=== PATIENT | female | born 1935 | race Caucasian/White ===

== ENCOUNTER 2016-12-30 11:12 | Inpatient (IN) | payer MEDICARE, MEDICAID ==
[~2016-12-30] VITALS: Ht 152.4 cm; Wt 77.1 kg
[~2016-12-30 11:12] MED LIST: AMLO2.5T45 PO; BENA40TA66 PO; BISA-81 PO; CLON0.1T PO; DOCU-150 PO; FURO20TA4 PO; GABA-531 PO; LEVO25TA7 PO; PANT40TA4 PO; POTA10TA15 PO; SERT50TA PO; TRAV2.5D EACHEYE; WARF2.5T47 PO
[2016-12-30 11:55] LABS: BASOPHILS % 1.2 % (0.0-2.0); EOSINOPHILS % 0.9 % (0.0-5.0); HEMATOCRIT. 38.8 % (36.0-48.0); HEMOGLOBIN. 12.6 g/dL (12.0-16.0); LYMPHOCYTES % 18.7 % (20.0-50.0); MEAN CORPUSCULAR VOLUME 76.6 fL (81.0-99.0); MONOCYTES % 9.5 % (2.0-8.0); NEUTROPHILS % 69.7 % (40.0-76.0); PLATELET 161 x1000/uL (130-400); RED BLOOD CELL COUNT 5.06 mill/uL (4.2-5.4); RED CELL DISTRIBUTION WIDTH 18.5 % (11.6-14.6)
[2016-12-30 11:59] LABS: INR 1.9; PROTHROMBIN TIME 19.8 sec
[2016-12-30 12:02] LABS: CHLORIDE 102 mEq/L (98-107)
[2016-12-30 12:11] LABS: CARBON DIOXIDE 34 mEq/L (21-32); TROPONIN I < 0.02 ng/mL (0.00-0.04)
[2016-12-30] MEDS ORDERED: AZITHROMYCIN 500 MG in DEXT 5% WATER 250 ML IV SCH (15:30)
[2016-12-30] MEDS ORDERED: CEFTRIAXONE SODIUM 500 MG/VIAL IM ONE (15:30)
[2016-12-30] MEDS ORDERED: CEFTRIAXONE 1 G PREMIX 50 ML IV ONE (15:45)
[2016-12-30] MEDS ORDERED: DOCUSATE SODIUM 100MG CAPSULE PO PRN (16:00)
[2016-12-30] MEDS ORDERED: SODIUM CHLORIDE 0.9% 500 ML IV ONE (16:00)
[2016-12-30] MEDS ORDERED: CLONIDINE 0.1MG TABLET PO PRN (16:00)
[2016-12-30] MEDS ORDERED: NA PHOS,M-B/NA PHOS,DI-BA ENEMA 118ML PR PRN (16:00)
[2016-12-30] MEDS ORDERED: LORAZEPAM 2MG/ML CPJ IV PRN (16:00)
[2016-12-30] MEDS ORDERED: GUAIFENESIN 200MG/10ML SUGAR FREE UDC PO PRN (16:00)
[2016-12-30] MEDS ORDERED: ONDANSETRON HCL 4MG/2ML VIAL IV PRN (16:00)
[2016-12-30] MEDS ORDERED: MAGNESIUM/ALUMINUM HYDROXIDE/SIMETHICONE 30ML UDC PO PRN (16:00)
[2016-12-30] MEDS ORDERED: IPRATROPIUM/ALBUTEROL 0.5-3(2.5)MG/3ML NEB INH PRN (16:00)
[2016-12-30] MEDS ORDERED: NITROGLYCERIN 0.4MG TABLET SL SL PRN (16:00)
[2016-12-30] MEDS ORDERED: DIPHENHYDRAMINE 50MG/ML VIAL IV PRN (16:00)
[2016-12-30] MEDS ORDERED: ACETAMINOPHEN 325MG TABLET PO PRN (16:00)
[2016-12-30 16:17] LABS: HDL CHOLESTEROL 63 mg/dL (40-59); LDL CHOLESTEROL 96 mg/dL (5-100)
[2016-12-30 16:18] LABS: PHENYTOIN < 0.4 ug/mL (10-20)
[2016-12-30 20:00] VITALS: BP 158/79
[2016-12-30] MEDS ORDERED: ZOLPIDEM TARTRATE 5MG TABLET PO PRN (20:00)
[2016-12-30] MEDS ORDERED: ENOXAPARIN 40MG/0.4ML SYR SUBCUT SCH (20:00)
[2016-12-30] MEDS ORDERED: WARFARIN SODIUM 2MG TABLET PO NR (20:01)
[2016-12-30] MEDS ORDERED: DEXTROSE 50% WATER 50ML SYRINGE IV PRN (20:15)
[2016-12-30 20:26] VITALS: BP 159/61
[2016-12-30] MEDS ORDERED: PNEUMOCOCCAL 23-VAL P-SAC VAC 0.5 ML IM ONE (20:30)
[2016-12-30] MEDS: BLOOD SUGAR DIAGNOSTIC STRIP TEST SCH (21:00)
[2016-12-30] MEDS: INSULIN LISPRO 100 UNITS/ML SUBCUT SCH (21:00)
[2016-12-30] MEDS: GUAIFENESIN/DM 600MG/30MG ER TAB 12HR PO SCH (21:56)
[2016-12-30] MEDS: PHENYTOIN SODIUM EXTENDED 100MG CAPSULE PO SCH (21:56)
[2016-12-30] MEDS: METOPROLOL TARTRATE 25MG TABLET PO SCH (21:57)
[2016-12-30 23:11] LABS: CREATINE KINASE 37 IU/L (26-192); CREATINE KINASE MB FRACTION 1.2 ng/mL (0.5-3.6); TROPONIN I < 0.02 ng/mL (0.00-0.04)
[2016-12-31] VITALS: BP 102/61
[2016-12-31 04:00] VITALS: BP 142/81
[2016-12-31] MEDS: BLOOD SUGAR DIAGNOSTIC STRIP TEST SCH ×4 (06:01→20:54)
[2016-12-31] MEDS: LEVOTHYROXINE SODIUM 112MCG TABLET PO SCH (06:14)
[2016-12-31] MEDS: INSULIN LISPRO 100 UNITS/ML SUBCUT SCH ×4 (06:20→21:26)
[2016-12-31 06:51] LABS: INR 2.1; PROTHROMBIN TIME 22.4 sec
[2016-12-31 07:34] LABS: CREATINE KINASE 28 IU/L (26-192); CREATINE KINASE MB FRACTION 1.2 ng/mL (0.5-3.6); TROPONIN I < 0.02 ng/mL (0.00-0.04)
[2016-12-31 08:00] VITALS: BP 146/91
[2016-12-31] MEDS: GUAIFENESIN/DM 600MG/30MG ER TAB 12HR PO SCH ×2 (09:00→21:10)
[2016-12-31] MEDS: ZINC SULFATE 220 MG ( 50 ) CAPSULE PO SCH (09:42)
[2016-12-31] MEDS: AMLODIPINE 10MG TABLET PO SCH (09:42)
[2016-12-31] MEDS: PANTOPRAZOLE SODIUM 40 MG/VIAL IV SCH (09:43)
[2016-12-31] MEDS: METOPROLOL TARTRATE 25MG TABLET PO SCH ×2 (09:43→21:00)
[2016-12-31 12:00] VITALS: BP 147/69
[2016-12-31 16:00] VITALS: BP 147/91
[2016-12-31] MEDS ORDERED: CEFTRIAXONE 1 G PREMIX 50 ML IV SCH (16:00)
[2016-12-31] MEDS ORDERED: AZITHROMYCIN 500 MG in DEXT 5% WATER 250 ML IV SCH (17:00)
[2016-12-31] MEDS ORDERED: WARFARIN SODIUM 2MG TABLET PO NR (18:00)
[2016-12-31] MEDS: AZITHROMYCIN 500 MG in DEXT 5% WATER 250 ML IV SCH (18:42)
[2016-12-31 20:00] VITALS: BP 107/75
[2016-12-31] MEDS: PHENYTOIN SODIUM EXTENDED 100MG CAPSULE PO SCH (21:10)
[2017-01-01] VITALS: BP 137/67
[2017-01-01] MEDS: CEFTRIAXONE 1 G PREMIX 50 ML IV SCH ×2 (03:02→16:39)
[2017-01-01 04:00] VITALS: BP 114/59
[2017-01-01 05:56] LABS: INR 1.9; PROTHROMBIN TIME 20.1 sec
[2017-01-01] MEDS: BLOOD SUGAR DIAGNOSTIC STRIP TEST SCH ×4 (06:10→21:14)
[2017-01-01] MEDS: INSULIN LISPRO 100 UNITS/ML SUBCUT SCH ×4 (06:10→21:14)
[2017-01-01] MEDS: LEVOTHYROXINE SODIUM 112MCG TABLET PO SCH (06:33)
[2017-01-01 08:00] VITALS: BP 124/67
[2017-01-01] MEDS: METOPROLOL TARTRATE 25MG TABLET PO SCH ×2 (09:00→21:22)
[2017-01-01] MEDS: PANTOPRAZOLE SODIUM 40 MG/VIAL IV SCH (09:23)
[2017-01-01] MEDS: AMLODIPINE 10MG TABLET PO SCH (09:24)
[2017-01-01] MEDS: GUAIFENESIN/DM 600MG/30MG ER TAB 12HR PO SCH ×2 (09:24→21:21)
[2017-01-01] MEDS: ZINC SULFATE 220 MG ( 50 ) CAPSULE PO SCH (09:28)
[2017-01-01 12:00] VITALS: BP 91/45
[2017-01-01 16:00] VITALS: BP 115/64
[2017-01-01] MEDS ORDERED: WARFARIN SODIUM 2.5MG TABLET PO NR (18:00)
[2017-01-01] MEDS: AZITHROMYCIN 500 MG in DEXT 5% WATER 250 ML IV SCH (18:29)
[2017-01-01 20:00] VITALS: BP 134/81
[2017-01-01] MEDS: PHENYTOIN SODIUM EXTENDED 100MG CAPSULE PO SCH (21:21)
[2017-01-01] MEDS: TRAMADOL 50MG TABLET PO PRN (21:21)
[2017-01-02] VITALS: BP 132/81
[2017-01-02 04:00] VITALS: BP 137/82
[2017-01-02 06:08] LABS: INR 2.3; PROTHROMBIN TIME 24.1 sec
[2017-01-02] MEDS: LEVOTHYROXINE SODIUM 25MCG TABLET PO SCH (06:16)
[2017-01-02] MEDS: BLOOD SUGAR DIAGNOSTIC STRIP TEST SCH ×4 (06:16→21:56)
[2017-01-02] MEDS: INSULIN LISPRO 100 UNITS/ML SUBCUT SCH ×4 (06:21→21:00)
[2017-01-02 08:30] VITALS: BP 132/83
[2017-01-02] MEDS: PANTOPRAZOLE SODIUM 40 MG/VIAL IV SCH (08:43)
[2017-01-02] MEDS: ZINC SULFATE 220 MG ( 50 ) CAPSULE PO SCH (08:44)
[2017-01-02] MEDS: AMLODIPINE 10MG TABLET PO SCH (08:44)
[2017-01-02] MEDS: METOPROLOL TARTRATE 25MG TABLET PO SCH ×2 (08:44→21:47)
[2017-01-02] MEDS: GUAIFENESIN/DM 600MG/30MG ER TAB 12HR PO SCH ×2 (08:44→21:00)
[2017-01-02 12:00] VITALS: BP 137/82
[2017-01-02 16:00] VITALS: BP 136/72
[2017-01-02] MEDS: CEFTRIAXONE 1 G PREMIX 50 ML IV SCH (16:34)
[2017-01-02] MEDS: AZITHROMYCIN 500 MG in DEXT 5% WATER 250 ML IV SCH (17:35)
[2017-01-02] MEDS ORDERED: WARFARIN SODIUM 2.5MG TABLET PO NR (18:00)
[2017-01-02 20:00] VITALS: BP 142/82
[2017-01-02] MEDS: PHENYTOIN SODIUM EXTENDED 100MG CAPSULE PO SCH (21:46)
[2017-01-03] VITALS (7 sets, daily range): BP systolic 127–161; BP diastolic 63–99
[2017-01-03 05:31] LABS: INR 2.4; PROTHROMBIN TIME 25.2 sec
[2017-01-03] MEDS: BLOOD SUGAR DIAGNOSTIC STRIP TEST SCH ×4 (06:04→20:11)
[2017-01-03] MEDS: LEVOTHYROXINE SODIUM 25MCG TABLET PO SCH (06:08)
[2017-01-03] MEDS: INSULIN LISPRO 100 UNITS/ML SUBCUT SCH ×4 (06:29→20:11)
[2017-01-03] MEDS ORDERED: FAMOTIDINE 20MG TABLET PO SCH (09:00)
[2017-01-03] MEDS: METOPROLOL TARTRATE 25MG TABLET PO SCH ×2 (09:18→20:07)
[2017-01-03] MEDS: ZINC SULFATE 220 MG ( 50 ) CAPSULE PO SCH (09:18)
[2017-01-03] MEDS: TRAMADOL 50MG TABLET PO PRN (09:19)
[2017-01-03] MEDS: AMLODIPINE 10MG TABLET PO SCH (09:19)
[2017-01-03] MEDS: GUAIFENESIN/DM 600MG/30MG ER TAB 12HR PO SCH ×2 (09:23→20:18)
[2017-01-03] MEDS ORDERED: WARFARIN SODIUM 2.5MG TABLET PO SCH (18:00)
[2017-01-03] MEDS: PHENYTOIN SODIUM EXTENDED 100MG CAPSULE PO SCH (20:07)
[2017-01-04 00:42] VITALS: BP 153/74
== END 2017-01-04 01:23 | DRG 193 ==
LOC: ER 11:22 → 5WST 15:26 → EDBEDREQ 15:29 → EDBEDREQTM 15:29 → SUPCPDRO 15:50 → ENRESERV 16:58
PROVIDERS: ADMIT Internal Medicine; ATTEND Internal Medicine
DX: J18.9 Pneumonia, unspecified organism (principal); G93.40 Encephalopathy, unspecified; E44.0 Moderate protein-calorie malnutrition; I69.354 Hemiplegia and hemiparesis following cerebral infarction affecting left non-dominant side; I48.91 Unspecified atrial fibrillation; E03.9 Hypothyroidism, unspecified; I10 Essential (primary) hypertension; E11.9 Type 2 diabetes mellitus without complications; E66.9 Obesity, unspecified; E78.00 Pure hypercholesterolemia, unspecified; E78.5 Hyperlipidemia, unspecified; E86.0 Dehydration; G40.909 Epilepsy, unspecified, not intractable, without status epilepticus; I95.9 Hypotension, unspecified; F32.9 Major depressive disorder, single episode, unspecified; Z74.01 Bed confinement status; Z68.33 Body mass index [BMI] 33.0-33.9, adult; Z79.01 Long term (current) use of anticoagulants; Z79.899 Other long term (current) drug therapy
CPT/HCPCS: 36415; 70551; 71010; 80053; 80061; 80185; 82550; 82553; 82962; 83036; 83880; 84443; 84484; 85025; 85610; 87040; 87086; 92610; 93005; 93306; 93970; 96365; 97163; 97167; 97530; 97535; 99285; C1893; C9113; J0456; J0696; J1650; J1815; J7040; J7050; J7060

== ENCOUNTER 2017-03-12 17:38 | Inpatient (IN) | payer MEDICARE, MEDICAID ==
[~2017-03-12] VITALS: Ht 160 cm; Wt 57.6 kg
[2017-03-12] MEDS ORDERED: ONDANSETRON HCL 4MG/2ML VIAL IV STA (18:27)
[2017-03-12] MEDS ORDERED: MORPHINE SULFATE 4 MG/ML CPJ (NOT FOR IM USE) IV STA (18:27)
[2017-03-12 19:06] LABS: BASOPHILS % 0.4 % (0.0-2.0); EOSINOPHILS % 0.1 % (0.0-5.0); HEMATOCRIT. 38.5 % (36.0-48.0); HEMOGLOBIN. 12.7 g/dL (12.0-16.0); LYMPHOCYTES % 13.2 % (20.0-50.0); MEAN CORPUSCULAR HEMOGLOBIN 26.3 pg (28.0-32.0); MEAN CORPUSCULAR VOLUME 79.9 fL (81.0-99.0); MEAN PLATELET VOLUME 8.1 fl (7.4-10.4); MONOCYTES % 8.2 % (2.0-8.0); NEUTROPHILS % 78.1 % (40.0-76.0); PLATELET 214 x1000/uL (130-400); RED BLOOD CELL COUNT 4.82 mill/uL (4.2-5.4); RED CELL DISTRIBUTION WIDTH 18.9 % (11.6-14.6)
[2017-03-12 19:12] LABS: INR 2.7; PARTIAL THROMBOPLASTIN TIME 49.7 sec (23.4-31.0); PROTHROMBIN TIME 28.3 sec (9.4-11.6)
[2017-03-12 19:21] LABS: CARBON DIOXIDE 25 mEq/L (21-32); CHLORIDE 105 mEq/L (98-107); TROPONIN I 0.03 ng/mL (0.00-0.04)
[2017-03-12 22:30] VITALS: BP 106/75
[2017-03-13] VITALS: BP 106/75
[2017-03-13] MEDS ORDERED: DOCUSATE SODIUM 100MG CAPSULE PO PRN (00:30)
[2017-03-13] MEDS ORDERED: ONDANSETRON HCL 4MG/2ML VIAL IV PRN (00:30)
[2017-03-13] MEDS ORDERED: IPRATROPIUM/ALBUTEROL 0.5-3(2.5)MG/3ML NEB INH PRN (00:30)
[2017-03-13 04:00] VITALS: BP 139/62
[2017-03-13 07:54] LABS: TROPONIN I 0.02 ng/mL (0.00-0.04)
[2017-03-13 08:00] VITALS: BP 139/85
[2017-03-13 12:00] VITALS: BP 142/73
[2017-03-13] MEDS: MORPHINE SULFATE 2 MG/ML CPJ (NOT FOR IM USE) IV PRN (12:46)
[2017-03-13] MEDS ORDERED: CLONIDINE 0.1MG TABLET PO PRN (13:30)
[2017-03-13] MEDS ORDERED: BISACODYL 5MG TABLET PO PRN (13:30)
[2017-03-13] MEDS: FUROSEMIDE 20MG TABLET PO SCH (14:36)
[2017-03-13] MEDS: GABAPENTIN 300MG CAPSULE PO SCH ×2 (14:36→20:32)
[2017-03-13] MEDS: LEVOTHYROXINE SODIUM 25MCG TABLET PO SCH (14:36)
[2017-03-13] MEDS: AMLODIPINE 5MG TABLET PO SCH (14:37)
[2017-03-13] MEDS: DOCUSATE SODIUM 100MG CAPSULE PO SCH ×2 (14:37→16:39)
[2017-03-13] MEDS: SERTRALINE HCL 50MG TABLET PO SCH (14:37)
[2017-03-13] MEDS: PANTOPRAZOLE 40MG DR TABLET PO SCH (14:37)
[2017-03-13 15:36] LABS: TROPONIN I 0.02 ng/mL (0.00-0.04)
[2017-03-13 16:00] VITALS: BP 149/91
[2017-03-13 20:00] VITALS: BP 140/56
[2017-03-13] MEDS ORDERED: PHEN100C4 PO (22:56)
[2017-03-14] VITALS: BP 163/79
[2017-03-14 04:00] VITALS: BP 149/77
[2017-03-14 06:18] LABS: BASOPHILS % 0.5 % (0.0-2.0); EOSINOPHILS % 0.9 % (0.0-5.0); HEMATOCRIT. 38.6 % (36.0-48.0); HEMOGLOBIN. 12.8 g/dL (12.0-16.0); LYMPHOCYTES % 21.9 % (20.0-50.0); MEAN CORPUSCULAR HEMOGLOBIN 26.4 pg (28.0-32.0); MEAN CORPUSCULAR VOLUME 79.6 fL (81.0-99.0); MEAN PLATELET VOLUME 8.2 fl (7.4-10.4); MONOCYTES % 11.4 % (2.0-8.0); NEUTROPHILS % 65.3 % (40.0-76.0); PLATELET 205 x1000/uL (130-400); RED BLOOD CELL COUNT 4.85 mill/uL (4.2-5.4); RED CELL DISTRIBUTION WIDTH 18.9 % (11.6-14.6)
[2017-03-14] MEDS: LEVOTHYROXINE SODIUM 25MCG TABLET PO SCH (06:22)
[2017-03-14 07:03] LABS: CHLORIDE 103 mEq/L (98-107)
[2017-03-14 07:15] LABS: CARBON DIOXIDE 27 mEq/L (21-32); HDL CHOLESTEROL 58 mg/dL (40-59); LDL CHOLESTEROL 128 mg/dL (5-100); TROPONIN I 0.02 ng/mL (0.00-0.04)
[2017-03-14 08:00] VITALS: BP 169/74
[2017-03-14] MEDS ORDERED: BACITRACIN ZINC 15GM TUBE TOP ONE (08:11)
[2017-03-14] MEDS ORDERED: VANCOMYCIN HCL 500 MG/VIAL ONE (08:11)
[2017-03-14] MEDS ORDERED: FENTANYL CITRATE/PF 50MCG/ML 2ML VIAL ONE (08:20)
[2017-03-14] MEDS ORDERED: MIDAZOLAM HCL 2 MG/2 ML VIAL ONE (08:21)
[2017-03-14] MEDS ORDERED: DEXAMETHASONE 4MG/ML 1ML VIAL ONE (08:58)
[2017-03-14] MEDS ORDERED: LABETALOL HCL 5MG/ML VIAL 20ML IV ONE (08:58)
[2017-03-14] MEDS ORDERED: PROPOFOL 200MG/20ML VIAL IV ONE (08:58)
[2017-03-14] MEDS ORDERED: LIDOCAINE HCL 1% 20ML VIAL (Pyxis) INJ ONE (08:58)
[2017-03-14] MEDS ORDERED: CEFAZOLIN SODIUM 1000MG/VIAL ONE (08:58)
[2017-03-14] MEDS ORDERED: SODIUM CHLORIDE 0.9% 10ML VIAL ONE (08:58)
[2017-03-14] MEDS ORDERED: LABETALOL HCL 20MG/4ML CARPUJECT IV PRN (09:00)
[2017-03-14] MEDS: DOCUSATE SODIUM 100MG CAPSULE PO SCH ×2 (09:00→17:43)
[2017-03-14] MEDS ORDERED: ONDANSETRON HCL 4MG/2ML VIAL IV PRN (09:00)
[2017-03-14] MEDS: GABAPENTIN 300MG CAPSULE PO SCH ×2 (09:00→21:03)
[2017-03-14] MEDS ORDERED: MEPERIDINE HCL/PF 25MG/ML CPJ IV PRN (09:00)
[2017-03-14] MEDS ORDERED: HYDROMORPHONE HCL/PF 2MG/ML CPJ IV PRN (09:00)
[2017-03-14] MEDS: FUROSEMIDE 20MG TABLET PO SCH (09:00)
[2017-03-14] MEDS: AMLODIPINE 5MG TABLET PO SCH (09:00)
[2017-03-14] MEDS: SERTRALINE HCL 50MG TABLET PO SCH (09:00)
[2017-03-14] MEDS: PANTOPRAZOLE 40MG DR TABLET PO SCH (09:00)
[2017-03-14] MEDS ORDERED: CEFAZOLIN 1000MG PREMIX 50 ML IV SCH (10:00)
[2017-03-14 12:00] VITALS: BP 136/81
[2017-03-14] MEDS: MORPHINE SULFATE 2 MG/ML CPJ (NOT FOR IM USE) IV PRN ×2 (13:34→20:20)
[2017-03-14 13:40] LABS: PROTHROMBIN TIME 48.3 sec (9.4-11.6)
[2017-03-14 13:45] LABS: INR 4.6
[2017-03-14 16:00] VITALS: BP 124/74
[2017-03-14] MEDS: CEFAZOLIN 1000MG PREMIX 50 ML IV SCH (17:43)
[2017-03-14 20:00] VITALS: BP 159/80
[2017-03-15] VITALS: BP 133/78
[2017-03-15] MEDS: CEFAZOLIN 1000MG PREMIX 50 ML IV SCH (02:37)
[2017-03-15 04:00] VITALS: BP 130/72
[2017-03-15 06:28] LABS: BASOPHILS % 0.3 % (0.0-2.0); EOSINOPHILS % 0.3 % (0.0-5.0); HEMATOCRIT. 33.4 % (36.0-48.0); LYMPHOCYTES % 15.4 % (20.0-50.0); MEAN CORPUSCULAR HEMOGLOBIN 26.4 pg (28.0-32.0); MEAN CORPUSCULAR VOLUME 80.2 fL (81.0-99.0); MEAN PLATELET VOLUME 8.3 fl (7.4-10.4); MONOCYTES % 12.8 % (2.0-8.0); NEUTROPHILS % 71.2 % (40.0-76.0); PLATELET 198 x1000/uL (130-400); RED BLOOD CELL COUNT 4.16 mill/uL (4.2-5.4); RED CELL DISTRIBUTION WIDTH 18.8 % (11.6-14.6)
[2017-03-15 06:29] LABS: PROTHROMBIN TIME 43.1 sec (9.4-11.6)
[2017-03-15 06:51] LABS: CHLORIDE 103 mEq/L (98-107)
[2017-03-15 06:56] LABS: CARBON DIOXIDE 25 mEq/L (21-32)
[2017-03-15] MEDS: LEVOTHYROXINE SODIUM 25MCG TABLET PO SCH (07:04)
[2017-03-15 07:11] LABS: INR 4.1
[2017-03-15 08:00] VITALS: BP 115/79
[2017-03-15] MEDS: DOCUSATE SODIUM 100MG CAPSULE PO SCH ×2 (09:50→17:13)
[2017-03-15] MEDS: FUROSEMIDE 20MG TABLET PO SCH (09:50)
[2017-03-15] MEDS: GABAPENTIN 300MG CAPSULE PO SCH ×2 (09:50→21:34)
[2017-03-15] MEDS: FAMOTIDINE 20MG TABLET PO SCH (09:50)
[2017-03-15] MEDS: SERTRALINE HCL 50MG TABLET PO SCH (09:51)
[2017-03-15] MEDS: AMLODIPINE 5MG TABLET PO SCH (09:51)
[2017-03-15 12:00] VITALS: BP 109/66
[2017-03-15] MEDS ORDERED: POTASSIUM CHLORIDE 20MEQ TABLET SR PO NR (15:00)
[2017-03-15 16:00] VITALS: BP 136/72
[2017-03-15] MEDS ORDERED: MAGNESIUM 1 G PREMIX 100 ML IV NR ×3 (16:30→18:30)
[2017-03-15] MEDS: ACETAMINOPHEN 325MG TABLET PO PRN (17:13)
[2017-03-15 20:00] VITALS: BP 101/57
[2017-03-16] VITALS: BP 114/66
[2017-03-16 04:00] VITALS: BP 153/48
[2017-03-16] MEDS: MORPHINE SULFATE 2 MG/ML CPJ (NOT FOR IM USE) IV PRN (05:33)
[2017-03-16 06:18] LABS: BASOPHILS % 0.3 % (0.0-2.0); EOSINOPHILS % 1.8 % (0.0-5.0); HEMATOCRIT. 30.2 % (36.0-48.0); HEMOGLOBIN. 9.9 g/dL (12.0-16.0); LYMPHOCYTES % 20.8 % (20.0-50.0); MEAN CORPUSCULAR HEMOGLOBIN 26.5 pg (28.0-32.0); MEAN CORPUSCULAR VOLUME 80.6 fL (81.0-99.0); MEAN PLATELET VOLUME 8.1 fl (7.4-10.4); MONOCYTES % 9.4 % (2.0-8.0); NEUTROPHILS % 67.7 % (40.0-76.0); PLATELET 196 x1000/uL (130-400); RED BLOOD CELL COUNT 3.75 mill/uL (4.2-5.4); RED CELL DISTRIBUTION WIDTH 18.4 % (11.6-14.6)
[2017-03-16 06:31] LABS: INR 2.3; PROTHROMBIN TIME 24.1 sec (9.4-11.6)
[2017-03-16 07:02] LABS: CARBON DIOXIDE 28 mEq/L (21-32); CHLORIDE 106 mEq/L (98-107)
[2017-03-16 08:00] VITALS: BP 134/68
[2017-03-16] MEDS: LEVOTHYROXINE SODIUM 25MCG TABLET PO SCH (08:06)
[2017-03-16] MEDS: GABAPENTIN 300MG CAPSULE PO SCH ×2 (08:16→21:14)
[2017-03-16] MEDS: DOCUSATE SODIUM 100MG CAPSULE PO SCH ×2 (08:16→17:13)
[2017-03-16] MEDS: SERTRALINE HCL 50MG TABLET PO SCH (08:16)
[2017-03-16] MEDS: FUROSEMIDE 20MG TABLET PO SCH (08:16)
[2017-03-16] MEDS: AMLODIPINE 5MG TABLET PO SCH (08:16)
[2017-03-16] MEDS: FAMOTIDINE 20MG TABLET PO SCH (08:16)
[2017-03-16 12:00] VITALS: BP 104/74
[2017-03-16] MEDS: LOSARTAN POTASSIUM 25 MG TABLET PO SCH (15:32)
[2017-03-16 16:00] VITALS: BP 121/60
[2017-03-16] MEDS: DILTIAZEM HCL 30MG TABLET PO SCH (17:15)
[2017-03-16 20:19] VITALS: BP 104/65
[2017-03-17] VITALS: BP 102/54
[2017-03-17 04:00] VITALS: BP 109/47
[2017-03-17] MEDS: DILTIAZEM HCL 30MG TABLET PO SCH ×4 (06:00→17:20)
[2017-03-17] MEDS: LEVOTHYROXINE SODIUM 25MCG TABLET PO SCH (07:25)
[2017-03-17 08:00] VITALS: BP 113/60
[2017-03-17] MEDS: FAMOTIDINE 20MG TABLET PO SCH (08:44)
[2017-03-17] MEDS: GABAPENTIN 300MG CAPSULE PO SCH ×2 (08:44→21:16)
[2017-03-17] MEDS: DOCUSATE SODIUM 100MG CAPSULE PO SCH ×2 (08:44→17:19)
[2017-03-17] MEDS: SERTRALINE HCL 50MG TABLET PO SCH (08:44)
[2017-03-17] MEDS: FUROSEMIDE 20MG TABLET PO SCH (08:44)
[2017-03-17] MEDS: LOSARTAN POTASSIUM 25 MG TABLET PO SCH (08:55)
[2017-03-17 12:00] VITALS: BP 127/70
[2017-03-17 16:00] VITALS: BP 118/70
[2017-03-17 20:15] VITALS: BP 135/87
[2017-03-18] VITALS: BP 144/48
[2017-03-18] MEDS: DILTIAZEM HCL 30MG TABLET PO SCH ×4 (01:00→17:13)
[2017-03-18 04:00] VITALS: BP 98/51
[2017-03-18] MEDS: LEVOTHYROXINE SODIUM 25MCG TABLET PO SCH (06:18)
[2017-03-18] MEDS: ACETAMINOPHEN 325MG TABLET PO PRN (06:18)
[2017-03-18 08:00] VITALS: BP 131/70
[2017-03-18] MEDS: LOSARTAN POTASSIUM 25 MG TABLET PO SCH (08:43)
[2017-03-18] MEDS: DOCUSATE SODIUM 100MG CAPSULE PO SCH ×2 (08:43→17:11)
[2017-03-18] MEDS: FAMOTIDINE 20MG TABLET PO SCH (08:43)
[2017-03-18] MEDS: SERTRALINE HCL 50MG TABLET PO SCH (08:43)
[2017-03-18] MEDS: FUROSEMIDE 20MG TABLET PO SCH (08:43)
[2017-03-18] MEDS: GABAPENTIN 300MG CAPSULE PO SCH ×2 (08:43→19:50)
[2017-03-18] MEDS ORDERED: MORPHINE SULFATE 2 MG/ML CPJ (NOT FOR IM USE) IV PRN (11:30)
[2017-03-18 12:00] VITALS: BP 123/68
[2017-03-18 16:00] VITALS: BP 119/46
[2017-03-18 20:00] VITALS: BP 128/53
[2017-03-19] VITALS: BP 134/65
[2017-03-19 04:00] VITALS: BP 125/51
[2017-03-19] MEDS: DILTIAZEM HCL 30MG TABLET PO SCH ×3 (06:24→12:41)
[2017-03-19 08:00] VITALS: BP 141/69
[2017-03-19] MEDS: SERTRALINE HCL 50MG TABLET PO SCH (08:58)
[2017-03-19] MEDS: FUROSEMIDE 20MG TABLET PO SCH (08:58)
[2017-03-19] MEDS: FAMOTIDINE 20MG TABLET PO SCH (08:58)
[2017-03-19] MEDS: LOSARTAN POTASSIUM 25 MG TABLET PO SCH (08:58)
[2017-03-19] MEDS: GABAPENTIN 300MG CAPSULE PO SCH (08:58)
[2017-03-19] MEDS: LEVOTHYROXINE SODIUM 25MCG TABLET PO SCH (08:58)
[2017-03-19] MEDS: DOCUSATE SODIUM 100MG CAPSULE PO SCH (08:58)
[2017-03-19 12:00] VITALS: BP 142/68
[2017-03-19 13:17] LABS: HEMATOCRIT 28.4 % (36.0-48.0); HEMOGLOBIN 9.4 g/dL (12.0-16.0); MEAN CORPUSCULAR HEMOGLOBIN 26.4 pg (28.0-32.0); MEAN CORPUSCULAR VOLUME 79.6 fL (81.0-99.0); PLATELET 229 x1000/uL (130-400); RED BLOOD CELL COUNT 3.57 mill/uL (4.2-5.4); RED CELL DISTRIBUTION WIDTH 17.7 % (11.6-14.6)
[2017-03-19 13:19] LABS: INR 1.1; PROTHROMBIN TIME 11.5 sec (9.4-11.6)
[2017-03-19 13:39] LABS: CARBON DIOXIDE 30 mEq/L (21-32); CHLORIDE 102 mEq/L (98-107)
[2017-03-19] MEDS: ACETAMINOPHEN 325MG TABLET PO PRN (14:10)
[2017-03-19 16:00] VITALS: BP 145/67
[2017-03-19 17:34] VITALS: BP 145/67
[2017-05-28] MEDS ORDERED: LOSA25TA12 PO (05:24)
[2017-05-28] MEDS ORDERED: [UNRECOGNIZED DRUG - OTHER] PO (05:24)
[2017-05-28] MEDS ORDERED: DILT30TA38 PO (05:24)
[2017-05-28] MEDS ORDERED: ONDA4TAB5 PO (05:24)
[2017-05-28] MEDS ORDERED: ACET-2178 PO (05:24)
[2017-05-28] MEDS ORDERED: FAMO20TA8 PO (05:24)
== END 2017-03-19 18:05 | DRG 480 ==
LOC: ER 18:25 → 6EST 18:31 → ENRESERV 19:05 → 7WST 03-15 16:23
PROVIDERS: ADMIT Hospitalist; ATTEND Hospitalist
PROC: 0QS736Z Reposition Left Upper Femur with Intramedullary Internal Fixation Device, Percutaneous Approach (ICD-10-PCS; principal; 2017-03-14 09:00)
DX: S72.142A Displaced intertrochanteric fracture of left femur, initial encounter for closed fracture (principal); E43 Unspecified severe protein-calorie malnutrition; F03.90 Unspecified dementia, unspecified severity, without behavioral disturbance, psychotic disturbance, mood disturbance, and anxiety; I11.9 Hypertensive heart disease without heart failure; G62.9 Polyneuropathy, unspecified; D68.9 Coagulation defect, unspecified; J98.11 Atelectasis; I48.2 Chronic atrial fibrillation; G40.909 Epilepsy, unspecified, not intractable, without status epilepticus; W19.XXXA Unspecified fall, initial encounter; E03.9 Hypothyroidism, unspecified; F32.9 Major depressive disorder, single episode, unspecified; F41.9 Anxiety disorder, unspecified; J44.9 Chronic obstructive pulmonary disease, unspecified; K21.9 Gastro-esophageal reflux disease without esophagitis; Z79.01 Long term (current) use of anticoagulants; Z86.73 Personal history of transient ischemic attack (TIA), and cerebral infarction without residual deficits; Z79.899 Other long term (current) drug therapy; Y93.89 Activity, other specified; Y92.128 Other place in nursing home as the place of occurrence of the external cause; Z68.22 Body mass index [BMI] 22.0-22.9, adult; Y99.8 Other external cause status
CPT/HCPCS: 36415; 71010; 73502; 76000; 80048; 80053; 80061; 80185; 82550; 83735; 83880; 84443; 84484; 85025; 85027; 85610; 85730; 86850; 86900; 87040; 93005; 93970; 96374; 96375; 97163; 97530; 99285; A4216; C1713; C1769; C1893; J0690; J1100; J1170; J2250; J2270; J2405; J2704; J3010; J3370; J3475; J3490; J7040

== ENCOUNTER 2021-03-10 14:02 | Inpatient (IN) | payer MEDICARE, MEDICAID ==
[~2021-03-10] VITALS: Ht 160 cm; Wt 74.0 kg
[~2021-03-10 14:02] MED LIST changes: +DILT30TA38 PO; +FAMO20TA8 PO; -GABA-531 PO; +GABA-532 PO; +LOSA25TA26 PO; +ONDA4TAB5 PO; -PANT40TA4 PO; +PANT40TA51 PO; +PHEN100C4 PO; +TOPUD PO; -TRAV2.5D EACHEYE; +TRAV2.5D9 EACHEYE; +[UNRECOGNIZED DRUG - OTHER] PO
[2021-03-10] MEDS ORDERED: CEFTRIAXONE 1 G PREMIX 50 ML IV ONE (15:00)
[2021-03-10] MEDS ORDERED: SODIUM CHLORIDE 0.9% 500 ML IV ONE (15:00)
[2021-03-10 15:33] LABS: BASOPHILS % 0.5 % (0.0-2.0); EOSINOPHILS % 0.1 % (0.0-5.0); HEMATOCRIT. 47.7 % (36.0-48.0); HEMOGLOBIN. 15.5 g/dL (12.0-16.0); LYMPHOCYTES % 7.9 % (20.0-50.0); MEAN CORPUSCULAR VOLUME 85.9 fL (81.0-99.0); MEAN PLATELET VOLUME 8.7 fl (7.4-10.4); MONOCYTES % 6.5 % (2.0-8.0); PLATELET 272 x1000/uL (130-400); RED BLOOD CELL COUNT 5.55 mill/uL (4.2-5.4); RED CELL DISTRIBUTION WIDTH 16.5 % (11.6-14.6)
[2021-03-10 15:34] LABS: CHLORIDE 116 mEq/L (98-107)
[2021-03-10 15:38] LABS: INR 1.3; PROTHROMBIN TIME 13.9 sec (9.6-11.0)
[2021-03-10 15:43] LABS: CREATINE KINASE 35 IU/L (26-192)
[2021-03-10] MEDS ORDERED: MAGNESIUM 2 G PREMIX 50 ML IV ONE (16:30)
[2021-03-10] MEDS ORDERED: VANCOMYCIN 1 G PREMIX 200 ML IV SCH (16:30)
[2021-03-10] MEDS ORDERED: PIPERACILLIN/TAZOBACTAM 3.375GM/50ML PREMIX IV ONE (16:30)
[2021-03-10] MEDS ORDERED: GUAIFENESIN 200MG/10ML SUGAR FREE UDC PO PRN (18:30)
[2021-03-10] MEDS ORDERED: DOCUSATE SODIUM 100MG CAPSULE PO PRN (18:30)
[2021-03-10] MEDS ORDERED: ACETAMINOPHEN 325MG TABLET PO PRN ×2 (18:30)
[2021-03-10] MEDS ORDERED: CLONIDINE 0.1MG TABLET PO PRN (18:30)
[2021-03-10] MEDS ORDERED: ONDANSETRON HCL 4MG/2ML INJ IV PRN (18:30)
[2021-03-10] MEDS ORDERED: MAGNESIUM/ALUMINUM HYDROXIDE/SIMETHICONE 30ML UDC PO PRN (18:30)
[2021-03-10] MEDS ORDERED: IPRATROPIUM/ALBUTEROL 0.5-3(2.5)MG/3ML NEB NEB PRN (18:30)
[2021-03-10] MEDS ORDERED: NITROGLYCERIN 0.4MG TABLET SL SL PRN (18:30)
[2021-03-10 19:17] LABS: CLARITY URINE CLEAR (CLEAR); COLOR URINE YELLOW (YELLOW); KETONES URINE NEGATIVE (NEGATIVE); LEUKOCYTE ESTERASE URINE 1+ (NEGATIVE); NITRITE URINE POSITIVE (NEGATIVE); OCCULT BLOOD URINE NEGATIVE (NEGATIVE); PH URINE 5.5 (4.5-8.0); PROTEIN URINE NEGATIVE (NEGATIVE); SPECIFIC GRAVITY URINE 1.011 (1.005-1.030); UROBILINOGEN URINE 0.2 E.U./dL (0.2-1.0)
[2021-03-10] MEDS ORDERED: WARFARIN SODIUM 4MG TABLET PO NR (19:30)
[2021-03-10] MEDS ORDERED: VANCOMYCIN 500 MG PREMIX 100 ML IV NR (20:00)
[2021-03-10] MEDS: PIPERACILLIN/TAZ 3.375G PREMIX 50 ML IV SCH (20:04)
[2021-03-10] MEDS: SODIUM CHLORIDE 0.9% 1,000 ML IV SCH (20:04)
[2021-03-10 20:34] LABS: VITAMIN B12 SERUM > 2000.0 pg/mL (211-911)
[2021-03-10 20:58] LABS: T4 FREE 0.65 ng/dL (0.76-1.46)
[2021-03-10] MEDS ORDERED: ENOXAPARIN 60MG/0.6ML SYR SUBCUT SCH (21:00)
[2021-03-10 23:39] LABS: CREATINE KINASE 38 IU/L (26-192)
[2021-03-10 23:40] LABS: CREATINE KINASE MB FRACTION < 1.0 ng/mL (0.5-3.6)
[2021-03-11] MEDS: ASCORBIC ACID 500 MG TABLET PO SCH ×3 (01:41→23:25)
[2021-03-11] MEDS: FAMOTIDINE 20MG TABLET PO SCH ×2 (01:41→23:24)
[2021-03-11] MEDS: DILTIAZEM HCL 60MG TABLET PO SCH ×4 (01:48→23:25)
[2021-03-11] MEDS: PIPERACILLIN/TAZ 3.375G PREMIX 50 ML IV SCH ×2 (03:10→11:09)
[2021-03-11] MEDS: SODIUM CHLORIDE 0.9% 1,000 ML IV SCH ×2 (04:34→16:22)
[2021-03-11 04:38] LABS: HEMATOCRIT. 46.7 % (36.0-48.0); HEMOGLOBIN. 14.8 g/dL (12.0-16.0); MEAN CORPUSCULAR VOLUME 88.4 fL (81.0-99.0); MEAN PLATELET VOLUME 8.7 fl (7.4-10.4); PLATELET 225 x1000/uL (130-400); RED BLOOD CELL COUNT 5.29 mill/uL (4.2-5.4); RED CELL DISTRIBUTION WIDTH 17.4 % (11.6-14.6)
[2021-03-11 04:40] LABS: CHLORIDE 118 mEq/L (98-107)
[2021-03-11 04:43] LABS: INR 1.4; PROTHROMBIN TIME 14.8 sec (9.6-11.0)
[2021-03-11 04:48] LABS: PHOSPHORUS 2.1 mg/dL (2.5-4.9)
[2021-03-11 04:50] LABS: CREATINE KINASE 29 IU/L (26-192)
[2021-03-11 04:53] LABS: CREATINE KINASE MB FRACTION < 1.0 ng/mL (0.5-3.6)
[2021-03-11] MEDS ORDERED: ASPIRIN 325MG EC TABLET PO SCH (09:00)
[2021-03-11] MEDS: ZINC SULFATE 220 MG ( 50 ) CAPSULE PO SCH (09:23)
[2021-03-11] MEDS: CHOLECALCIFEROL (D3) 1000 UNIT TABLET PO SCH (09:23)
[2021-03-11] MEDS ORDERED: POTASSIUM CHLORIDE 20MEQ/PACKET PO SCH (12:30)
[2021-03-11] MEDS ORDERED: KCL 20MEQ/100ML PREMIX 100 ML IV SCH (14:00)
[2021-03-11 14:45] LABS: PLATELET ESTIMATE NORMAL
[2021-03-11] MEDS: ENOXAPARIN 60MG/0.6ML SYR SUBCUT SCH ×2 (16:35→23:26)
[2021-03-11] MEDS ORDERED: WARFARIN SODIUM 3MG TABLET PO NR (18:00)
[2021-03-12] VITALS (10 sets, daily range): BP systolic 94–149; BP diastolic 49–105
[2021-03-12] MEDS ORDERED: DILTIAZEM HCL 5MG/ML 5ML VIAL IV PRN
[2021-03-12] MEDS: PIPERACILLIN/TAZOBACTAM 3.375G in DEXT 5% WATER 50ML IV SCH ×4 (01:15→22:51)
[2021-03-12] MEDS: SODIUM CHLORIDE 0.9% 1,000 ML IV SCH ×3 (01:16→20:49)
[2021-03-12] MEDS: VANCOMYCIN 1 G PREMIX 200 ML IV SCH ×2 (03:05→20:49)
[2021-03-12] MEDS: DILTIAZEM HCL 60MG TABLET PO SCH ×3 (05:15→17:28)
[2021-03-12 06:19] LABS: HEMATOCRIT. 48.8 % (36.0-48.0); HEMOGLOBIN. 15.7 g/dL (12.0-16.0); MEAN CORPUSCULAR HEMOGLOBIN 27.9 pg (28.0-32.0); MEAN CORPUSCULAR VOLUME 86.8 fL (81.0-99.0); MEAN PLATELET VOLUME 9.1 fl (7.4-10.4); PLATELET 244 x1000/uL (130-400); RED BLOOD CELL COUNT 5.62 mill/uL (4.2-5.4); RED CELL DISTRIBUTION WIDTH 17.5 % (11.6-14.6)
[2021-03-12 06:26] LABS: PROTHROMBIN TIME 52.9 sec (9.6-11.0)
[2021-03-12 06:39] LABS: INR 5.7
[2021-03-12 07:08] LABS: CHLORIDE 119 mEq/L (98-107)
[2021-03-12 07:18] LABS: PHOSPHORUS 2.5 mg/dL (2.5-4.9)
[2021-03-12] MEDS: ASCORBIC ACID 500 MG TABLET PO SCH ×2 (08:50→20:49)
[2021-03-12] MEDS: ENOXAPARIN 60MG/0.6ML SYR SUBCUT SCH (08:50)
[2021-03-12] MEDS: CHOLECALCIFEROL (D3) 1000 UNIT TABLET PO SCH (08:50)
[2021-03-12] MEDS: ZINC SULFATE 220 MG ( 50 ) CAPSULE PO SCH (08:50)
[2021-03-12] MEDS ORDERED: ASPIRIN 325MG TABLET NG SCH (09:00)
[2021-03-12] MEDS: ATORVASTATIN CALCIUM 20MG TABLET PO SCH (20:49)
[2021-03-12] MEDS: FAMOTIDINE 20MG TABLET PO SCH (20:49)
[2021-03-13] VITALS (15 sets, daily range): BP systolic 101–157; BP diastolic 32–90
[2021-03-13] MEDS: DILTIAZEM HCL 60MG TABLET PO SCH ×4 (00:45→18:04)
[2021-03-13 04:26] LABS: PLATELET ESTIMATE NORMAL
[2021-03-13] MEDS: PIPERACILLIN/TAZOBACTAM 3.375G in DEXT 5% WATER 50ML IV SCH ×2 (05:25→13:56)
[2021-03-13] MEDS: SODIUM CHLORIDE 0.9% 1,000 ML IV SCH ×2 (05:33→16:50)
[2021-03-13] MEDS: ASCORBIC ACID 500 MG TABLET PO SCH ×2 (09:25→21:13)
[2021-03-13] MEDS: ZINC SULFATE 220 MG ( 50 ) CAPSULE PO SCH (09:26)
[2021-03-13] MEDS: CHOLECALCIFEROL (D3) 1000 UNIT TABLET PO SCH (09:26)
[2021-03-13 10:55] LABS: HEMATOCRIT. 41.7 % (36.0-48.0); MEAN CORPUSCULAR HEMOGLOBIN 27.4 pg (28.0-32.0); MEAN CORPUSCULAR VOLUME 87.7 fL (81.0-99.0); MEAN PLATELET VOLUME 9.2 fl (7.4-10.4); PLATELET 230 x1000/uL (130-400); RED BLOOD CELL COUNT 4.75 mill/uL (4.2-5.4); RED CELL DISTRIBUTION WIDTH 17.6 % (11.6-14.6)
[2021-03-13 11:09] LABS: CHLORIDE 120 mEq/L (98-107)
[2021-03-13 11:11] LABS: PROTHROMBIN TIME 61.3 sec (9.6-11.0)
[2021-03-13 11:19] LABS: PHOSPHORUS 1.1 mg/dL (2.5-4.9)
[2021-03-13 13:11] LABS: INR 6.6
[2021-03-13 16:02] LABS: PLATELET ESTIMATE NORMAL
[2021-03-13] MEDS ORDERED: SODIUM CHLORIDE 0.45% 250 ML IV NR (20:00)
[2021-03-13] MEDS ORDERED: VANCOMYCIN 750 MG PREMIX 150 ML IV SCH (21:00)
[2021-03-13] MEDS: FAMOTIDINE 20MG TABLET PO SCH (21:13)
[2021-03-13] MEDS: ATORVASTATIN CALCIUM 20MG TABLET PO SCH (21:13)
[2021-03-13] MEDS: CEFTRIAXONE 1,000 MG in DEXTROSE 5% WATER 50 ML IV SCH (21:26)
[2021-03-14] VITALS (14 sets, daily range): BP systolic 90–158; BP diastolic 24–100
[2021-03-14] MEDS ORDERED: SODIUM CHLORIDE 0.45% 250 ML IV SCH
[2021-03-14] MEDS: DILTIAZEM HCL 60MG TABLET PO SCH ×4 (01:10→18:33)
[2021-03-14 06:29] LABS: HEMATOCRIT. 39.1 % (36.0-48.0); HEMOGLOBIN. 12.7 g/dL (12.0-16.0); MEAN CORPUSCULAR HEMOGLOBIN 27.7 pg (28.0-32.0); MEAN CORPUSCULAR VOLUME 85.4 fL (81.0-99.0); MEAN PLATELET VOLUME 9.5 fl (7.4-10.4); PLATELET 214 x1000/uL (130-400); RED BLOOD CELL COUNT 4.58 mill/uL (4.2-5.4); RED CELL DISTRIBUTION WIDTH 17.3 % (11.6-14.6)
[2021-03-14 06:30] LABS: INR 3.8; PROTHROMBIN TIME 36.8 sec (9.6-11.0)
[2021-03-14 06:44] LABS: CHLORIDE 123 mEq/L (98-107)
[2021-03-14] MEDS: ZINC SULFATE 220 MG ( 50 ) CAPSULE PO SCH (09:25)
[2021-03-14] MEDS: CHOLECALCIFEROL (D3) 1000 UNIT TABLET PO SCH (09:26)
[2021-03-14] MEDS: ASCORBIC ACID 500 MG TABLET PO SCH ×2 (09:26→21:32)
[2021-03-14] MEDS ORDERED: DEXTROSE 50% WATER 50ML SYRINGE IV PRN (11:45)
[2021-03-14] MEDS ORDERED: BLOOD SUGAR DIAGNOSTIC STRIP TEST SCH (11:50)
[2021-03-14] MEDS: SODIUM CHLORIDE 0.45% 1,000 ML IV SCH ×2 (12:15→21:33)
[2021-03-14] MEDS ORDERED: INSULIN LISPRO 100 UNITS/ML SUBCUT SCH (12:20)
[2021-03-14] MEDS ORDERED: POTASSIUM PHOS,M-BASIC-D-BASIC 30 MMOL in DEXT 5% WATER 500 ML IV NR (12:30)
[2021-03-14] MEDS: PHENYTOIN SODIUM EXTENDED 100MG CAPSULE PO SCH ×2 (14:18→21:32)
[2021-03-14] MEDS ORDERED: POTA-9 PO (16:35)
[2021-03-14] MEDS ORDERED: MONT10TA32 PO (16:37)
[2021-03-14 17:11] LABS: PLATELET ESTIMATE NORMAL
[2021-03-14] MEDS: INSULIN LISPRO 100 UNITS/ML SUBCUT SCH (18:33)
[2021-03-14] MEDS: BLOOD SUGAR DIAGNOSTIC STRIP TEST SCH (18:34)
[2021-03-14] MEDS: ATORVASTATIN CALCIUM 20MG TABLET PO SCH (21:32)
[2021-03-14] MEDS: CEFTRIAXONE 1,000 MG in DEXTROSE 5% WATER 50 ML IV SCH (21:32)
[2021-03-14] MEDS: FAMOTIDINE 20MG TABLET PO SCH (21:32)
[2021-03-15] VITALS (10 sets, daily range): BP systolic 114–151; BP diastolic 31–99
[2021-03-15] MEDS: INSULIN LISPRO 100 UNITS/ML SUBCUT SCH ×5 (00:01→23:36)
[2021-03-15] MEDS: BLOOD SUGAR DIAGNOSTIC STRIP TEST SCH ×5 (00:02→23:30)
[2021-03-15] MEDS: DILTIAZEM HCL 60MG TABLET PO SCH ×5 (00:02→23:36)
[2021-03-15] MEDS: PHENYTOIN SODIUM EXTENDED 100MG CAPSULE PO SCH ×3 (06:02→21:36)
[2021-03-15] MEDS: SODIUM CHLORIDE 0.45% 1,000 ML IV SCH ×2 (06:02→14:50)
[2021-03-15 07:13] LABS: HEMATOCRIT. 41.3 % (36.0-48.0); HEMOGLOBIN. 13.2 g/dL (12.0-16.0); MEAN CORPUSCULAR HEMOGLOBIN 27.5 pg (28.0-32.0); MEAN CORPUSCULAR VOLUME 85.9 fL (81.0-99.0); MEAN PLATELET VOLUME 9.3 fl (7.4-10.4); PLATELET 207 x1000/uL (130-400); RED BLOOD CELL COUNT 4.81 mill/uL (4.2-5.4); RED CELL DISTRIBUTION WIDTH 17.7 % (11.6-14.6)
[2021-03-15 07:16] LABS: INR 3.4; PROTHROMBIN TIME 33.4 sec (9.6-11.0)
[2021-03-15 07:31] LABS: CHLORIDE 117 mEq/L (98-107)
[2021-03-15 07:43] LABS: PHOSPHORUS 3.1 mg/dL (2.5-4.9)
[2021-03-15] MEDS: CHOLECALCIFEROL (D3) 1000 UNIT TABLET PO SCH (09:22)
[2021-03-15] MEDS: ASCORBIC ACID 500 MG TABLET PO SCH ×2 (09:22→21:36)
[2021-03-15] MEDS: ZINC SULFATE 220 MG ( 50 ) CAPSULE PO SCH (09:22)
[2021-03-15] MEDS ORDERED: BISA10SU62 RC (14:58)
[2021-03-15] MEDS ORDERED: FURO-151 PO (14:59)
[2021-03-15] MEDS ORDERED: SERT25TA74 PO (15:03)
[2021-03-15] MEDS ORDERED: WARF-67 MT (15:44)
[2021-03-15 19:15] LABS: PLATELET ESTIMATE NORMAL
[2021-03-15] MEDS: CEFTRIAXONE 1,000 MG in DEXTROSE 5% WATER 50 ML IV SCH (21:35)
[2021-03-15] MEDS: ATORVASTATIN CALCIUM 20MG TABLET PO SCH (21:36)
[2021-03-15] MEDS: FAMOTIDINE 20MG TABLET PO SCH (21:36)
[2021-03-16] VITALS (14 sets, daily range): BP systolic 108–143; BP diastolic 58–96
[2021-03-16] MEDS: SODIUM CHLORIDE 0.45% 1,000 ML IV SCH (03:15)
[2021-03-16] MEDS: INSULIN LISPRO 100 UNITS/ML SUBCUT SCH ×2 (06:00→12:59)
[2021-03-16] MEDS: BLOOD SUGAR DIAGNOSTIC STRIP TEST SCH ×3 (06:13→16:55)
[2021-03-16] MEDS: DILTIAZEM HCL 60MG TABLET PO SCH ×3 (06:41→17:05)
[2021-03-16] MEDS: PHENYTOIN SODIUM EXTENDED 100MG CAPSULE PO SCH ×2 (06:41→14:54)
[2021-03-16] MEDS: CHOLECALCIFEROL (D3) 1000 UNIT TABLET PO SCH (09:07)
[2021-03-16] MEDS: ZINC SULFATE 220 MG ( 50 ) CAPSULE PO SCH (09:07)
[2021-03-16] MEDS: ASCORBIC ACID 500 MG TABLET PO SCH (09:07)
[2021-03-16 13:15] LABS: INR 1.7; PROTHROMBIN TIME 17.6 sec (9.6-11.0)
[2021-03-16] MEDS ORDERED: APIXABAN 5 MG TABLET PO SCH (18:00)
== END 2021-03-16 20:22 | DRG 871 ==
LOC: ER 14:11 → EDBEDREQ 17:38 → EDBEDREQSVC 17:38 → SUPCPDRO 17:44 → EDBEDREQ 18:19 → MICUSO 21:07 → 3WST 03-11 19:50
PROVIDERS: ADMIT Internal Medicine; ATTEND Internal Medicine
DX: A41.9 Sepsis, unspecified organism (principal); L89.894 Pressure ulcer of other site, stage 4; I50.33 Acute on chronic diastolic (congestive) heart failure; G92 Toxic encephalopathy; J18.9 Pneumonia, unspecified organism; G82.50 Quadriplegia, unspecified; E44.0 Moderate protein-calorie malnutrition; E87.0 Hyperosmolality and hypernatremia; I48.19 Other persistent atrial fibrillation; N39.0 Urinary tract infection, site not specified; I48.92 Unspecified atrial flutter; I69.354 Hemiplegia and hemiparesis following cerebral infarction affecting left non-dominant side; E03.9 Hypothyroidism, unspecified; F03.90 Unspecified dementia, unspecified severity, without behavioral disturbance, psychotic disturbance, mood disturbance, and anxiety; F20.9 Schizophrenia, unspecified; G40.909 Epilepsy, unspecified, not intractable, without status epilepticus; I11.0 Hypertensive heart disease with heart failure; R62.7 Adult failure to thrive; T42.0X5A Adverse effect of hydantoin derivatives, initial encounter; Z20.822 Contact with and (suspected) exposure to COVID-19; R65.20 Severe sepsis without septic shock; E78.5 Hyperlipidemia, unspecified; K21.9 Gastro-esophageal reflux disease without esophagitis; E11.40 Type 2 diabetes mellitus with diabetic neuropathy, unspecified; R53.81 Other malaise; E78.00 Pure hypercholesterolemia, unspecified; R13.10 Dysphagia, unspecified; B96.1 Klebsiella pneumoniae [K. pneumoniae] as the cause of diseases classified elsewhere; S30.0XXA Contusion of lower back and pelvis, initial encounter; X58.XXXA Exposure to other specified factors, initial encounter; Y93.89 Activity, other specified; Y99.8 Other external cause status; Z79.899 Other long term (current) drug therapy; Z79.82 Long term (current) use of aspirin; Z79.01 Long term (current) use of anticoagulants; Y92.89 Other specified places as the place of occurrence of the external cause; I69.320 Aphasia following cerebral infarction; Z68.28 Body mass index [BMI] 28.0-28.9, adult
CPT/HCPCS: 36415; 71045; 80048; 80053; 80061; 80185; 80202; 81003; 82040; 82550; 82553; 82607; 82746; 82962; 83036; 83540; 83550; 83605; 83735; 83880; 84100; 84134; 84145; 84439; 84443; 84484; 85025; 87077; 87186; 87426; 92523; 92610; 93005; 93970; 97162; 99291; A6261; J0696; J1650; J1815; J2543; J3370; J3475; J3480; J3490; J7030; J7060